=== PATIENT | female | born 1950 | race Caucasian/White ===

== ENCOUNTER → 2018-07-27 14:40 | Outpatient (CLI) | payer MEDICARE, BC, SELFPAY | PROVIDERS: PCP Family Medicine; Visit Provider Nurse Practitioner Family | DX: M81.0 Age-related osteoporosis without current pathological fracture (principal); Z78.0 Asymptomatic menopausal state; Z85.3 Personal history of malignant neoplasm of breast; Z82.62 Family history of osteoporosis | CPT/HCPCS: 77080 ==

== ENCOUNTER → 2019-04-23 16:55 | Outpatient (CLI) | payer MEDICARE, BC, SELFPAY ==
--- NOTE | 2019-04-23 | DI.MRI.S_ITS ---
PROCEDURE: MR KNEE RT WO CON INDICATIONS: Right knee pain TECHNIQUE: Noncontrast sagittal PD fast spin echo and T2 fast spin echo with fat saturation, sagittal 3-D FLASH with fat saturation; coronal T1 spin echo and PD fast spin echo with fat saturation, and axial PD fast spin echo with fat saturation through the knee. COMPARISON: None. FINDINGS: Image quality: Diagnostic. Bones and joint: There is no acute fracture or dislocation. No suspicious osseous lesions are evident. There is a small knee joint effusion with an associated trace Daly's cyst. Heterogeneity and mild irregularity of the hyaline articular cartilage within all 3 compartments of the knee is present. Scattered full-thickness cartilaginous defects and areas of cartilaginous scarring appear to be present. No large defects are evident. Mild focal marrow edema involving the periphery of the medial tibial plateau be degenerative versus bone contusion. Scattered small developing marginal osteophytes are noted throughout the knee. Cruciate ligaments: The anterior and posterior cruciate ligaments are intact. Menisci: There is a complex tear is identified involving the medial meniscus with a predominant oblique tear extending from the periphery to the inferior articular surface through the body of the medial meniscus. There may be a small displaced meniscal flap identified within this region. Additional areas of degenerative/grade 2 signal extending into the anterior horn are present. Fraying along the free edge of the posterior horn of the medial meniscus is present. The lateral meniscus demonstrates low-grade partial-thickness tearing involving the anterior attachment, but is otherwise unremarkable. Medial structures: The medial collateral ligament is thickened. There is mild edema overlying this ligament.. The semimembranosus tendon insertion is intact. The imaged portions of the pes anserinus tendons are unremarkable. No significant fluid is contained within the pes anserinus bursa. Lateral structures: The popliteal tendon is intact. The lateral collateral ligament proper (fibular collateral ligament) and the proximal tibiofibular ligaments are intact. The distal aspect of the biceps femoris tendon and the iliotibial band are intact. Anterior structures: The quadriceps and patellar tendons are intact. Mild prepatellar soft tissue edema is noted. There is no significant edema in the infrapatellar fat pad. IMPRESSION: 1. Complex medial meniscal tear with a probable small displaced meniscal flap arising from the body of the meniscus. 2. 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 3. Small knee joint effusion. 4. Probable sprain of the medial collateral ligament. 5. Low-grade partial-thickness tear involving the anterior attachment of the lateral meniscus. Dictated by: Amish Friedman M.D. on 04/24/2019 at 8:53 Approved by: Amish Friedman M.D. on 04/24/2019 at 9:10
== END ==
PROVIDERS: PCP Nurse Practitioner Family; Visit Provider Orthopaedic Surgery
DX: S83.231A Complex tear of medial meniscus, current injury, right knee, initial encounter (principal); M94.261 Chondromalacia, right knee; M25.461 Effusion, right knee; S83.241A Other tear of medial meniscus, current injury, right knee, initial encounter; M25.561 Pain in right knee
CPT/HCPCS: 73721

== ENCOUNTER → 2019-11-28 10:06 | Outpatient (CLI) | payer MEDICARE, BC, SELFPAY ==
--- NOTE | 2019-11-28 | DI.US.S_ITS ---
PROCEDURE: US THYROID INDICATIONS: RIGHT SUBMANDIBULAR LUMP X 3 WEEKS TECHNIQUE: Real-time scanning was performed of the thyroid gland, with image documentation. COMPARISON: None. FINDINGS: Right: Thyroid lobe measures 1.9 x 1.9 x 4.2 cm, and is generally homogeneous in echotexture. Left: Thyroid lobe measures 1.6 x 1.8 x 4.7 cm, and is generally homogenous in echotexture. Isthmus: 2.2 mm thick. Nodule number: 1 Location: Superior left thyroid lobe Size: 2.0 x 1.1 x 1.4 cm. Composition: Solid (2 points) Echogenicity: Hypoechoic (1 point) Shape: Wider than tall Margins: Smoothly marginated Echogenic foci: Absent Total points: 3 points ACR TI-RADS category: Ti RADS 3, mildly suspicious, followup ultrasound recommended in one, 3 and 5 years. Nodule number: 2 Location: Superior right thyroid lobe Size: 1.6 x 1.0 x 1.2 cm. Composition: Solid (2 points) Echogenicity: Hypoechoic (1 points) Shape: Wider than tall Margins: Smoothly demarcated Echogenic foci: Macrocalcifications (1 point) Total points: 4 point ACR TI-RADS category: Ti RADS 4, moderate suspicion, cytology aspiration is recommended. Nodule number: 3 Location: Mid right thyroid lobe Size: 1.1 x 0.9 x 0.8 cm. Composition: Solid (2 points) Echogenicity: Hypoechoic (1 point) Shape: Wider than tall Margins: Smoothly marginated Echogenic foci: None Total points: 3 points ACR TI-RADS category: Ti RADS category 3, mildly suspicious, followup ultrasound assessment in one, 3 and 5 years, Adjacent soft tissues: The area of current clinical concern is located above the right thyroid lobe laterally, described as a submandibular mass like finding clinically, and this is comprised of 2 adjacent hypoechoic ovoid structures measuring 1.1 x 0.7 x 1.1 cm more superiorly without elevated vascularity and 1.8 x 1.2 x 1.6 cm more inferiorly, immediately adjacent, with mild increased internal vascularity. These appear to represent lymph nodes but without a visible fatty hilum at either of the 2 structures. IMPRESSION: 1. In the area of current palpable abnormality superior and lateral to the thyroid lobe on the right there are 2 adjacent ovoid hypoechoic structures with an appearance suggestive of abnormal lymph nodes, measuring up to 1.8 cm inferiorly and 1.1 cm slightly more superiorly. Neoplastic infiltration can produce this appearance. ENT consultation is recommended, and excisional biopsy may be warranted depending on that consultation. Please note that fine needle aspiration in the setting of lymphoma generally is nondiagnostic. Contrast-enhanced CT scanning of the neck likely is warranted given the findings. 2. The thyroid gland contains 3 separate thyroid nodules. The nodule located at the superior right thyroid lobe has a high rest category of 4, moderately suspicious, and given its size slightly above 1.6 cm in maximal dimension fine needle cytology aspiration is recommended. 3. 2 additional thyroid nodules are present, located at the middle third of the right thyroid lobe and the upper left thyroid lobe. Followup thyroid ultrasound targeted to these structures is recommended in one, 3, and 5 years. ACR TI-RADS definitions and recommendations: TI-RADS 1 (benign): 0 points. FNA not needed. TI-RADS 2 (not suspicious): 2 points. FNA not needed. TI-RADS 3 (mildly suspicious): 3 points. * FNA if 2.5 cm or larger, follow up if 1.5 cm or larger (at 1, 3, and 5 years). TI-RADS 4 (moderately suspicious): 4-6 points. * FNA if 1.5 cm or larger, follow up if 1 cm or larger (at 1, 2, 3, and 5 years). TI-RADS 5 (highly suspicious): 7 points or more. * FNA if 1 cm or larger, follow up if 0.5 cm or larger (every year for 5 years). Dictated by: William Morales M.D. on 11/30/2019 at 5:11 Approved by: William Morales M.D. on 11/30/2019 at 5:41
== END ==
PROVIDERS: PCP Internal Medicine; Referring Provider Internal Medicine; Visit Provider Internal Medicine
DX: E04.2 Nontoxic multinodular goiter (principal); R59.0 Localized enlarged lymph nodes
CPT/HCPCS: 76536

== ENCOUNTER → 2019-12-06 10:59 | Outpatient (CLI) | payer MEDICARE, BC, SELFPAY ==
--- NOTE | 2019-12-06 | DI.CT.S_ITS ---
PROCEDURE: CT SOFT TISSUE NECK W CON INDICATIONS: Generalized enlarged lymph nodes TECHNIQUE: After the administration of intravenous contrast, 3.0 mm axial sections acquired from the sella to the aortic arch. Additional oblique axial 3.0 mm sections acquired through the pharynx. 3 mm thick coronal and sagittal reformats were generated. For radiation dose reduction, the following was used: automated exposure control. COMPARISON: [facility], CT, THORAX WITH CONTRAST, 12/24/2011, 15:53. FINDINGS: Image quality: Excellent. Lymph nodes: There is a cluster of enlarged/borderline enlarged lymph nodes within the right level II and III scattered subcentimeter lymph nodes are noted, the largest measuring 14 mm in the right level IIA. There also multiple subcentimeter lymph nodes within the visualized portions of the right axillary and supraclavicular regions. Vessels: Visualized vasculature appears patent. Neck spaces: The oropharynx, nasopharynx, and pharynx demonstrate no mucosal lesions. The vocal cords, false vocal cords, pyriform sinuses, epiglottis, vallecula, and tongue base all appear normal. Extramucosal spaces appear unremarkable. Glands: The parotid and submandibular glands appear normal. Thyroid gland thyroid gland demonstrates low-attenuation foci as well as calcifications bilaterally. There are not included within the [id number] on prior exams.. Miscellaneous: Visualized brain and orbits appear normal. Lung apices appear clear. Superficial soft tissues appear normal. Incompletely visualized bilateral breast implants are noted. Bones: No suspicious bony lesions. Visualized sinuses and mastoids appear unremarkable. IMPRESSION: 1. Right-sided adenopathy as described above. Given history of previous breast cancer, there is concern for metastatic disease. 2. Thyroid low attenuation and calcifications as above without priors available for comparison. Heart ultrasound is recommended for further evaluation. Dictated by: Corinne Escobar M.D. on 12/06/2019 at 14:36 Approved by: Corinne Escobar M.D. on 12/06/2019 at 14:47
== END ==
PROVIDERS: PCP Internal Medicine; Referring Provider Internal Medicine; Visit Provider Internal Medicine
DX: R59.1 Generalized enlarged lymph nodes (principal); Z85.3 Personal history of malignant neoplasm of breast
CPT/HCPCS: 70491; Q9967

== ENCOUNTER → 2020-01-18 12:23 | Outpatient (CLI) | payer MEDICARE, BC, SELFPAY ==
--- NOTE | 2020-01-18 | PATH_ITS ---
Note [facility] Accession Number: [id number] TESTS RESULT FLAG UNITS REF RANGE LAB Clinician Provided Cytology Information No. of containers..01 Other (Miscellaneous) No. of containers..06 Previously Prepared Cytology Slide 01 RIGHT SUPERIOR THYROID NODULE DIAGNOSIS: 01 RIGHT SUPERIOR THYROID NODULE INCONCLUSIVE. BETHES[place] CATEGORY III. ATYPIA OF UNDETERMINED SIGNIFICANCE. COMMENT: The specimen is moderately cellular with follicular cells present in macro- and microfollicles. Nuclear overlap is seen as well as nuclear grooves and focal slight clearing of the chromatin. Hurthle cell change is seen in some of the groups. This case is also reviewed by Dr. Rachel Platt who concurs with the given intepretation. Pathologist ICD10: 01 R89.6 01 Details: Vickie is a 69-year-old female who is seen in evaluation of right neck swelling. Several months ago she had which seems to be a viral illness and subsequently had bilateral neck swelling. Subsequently this largely resolved and she was left with an area on the right submandibular region that was swollen. She underwent workup including an ultrasound of her thyroid followed by a CT of the neck. The ultrasound of the thyroid demonstrates 3 nodules the 1 of the nodules were in the right upper pole is 1.6 cm wider than tall and solid in its appearance and was classified as Ti Rads 4. The CT of the neck demonstrated a group of enlarged lymph nodes the largest being a 14 mm node in level Il of the right neck. She subsequently was seen by ENT who felt that she should undergo a needle biopsy of the thyroid and neck node. Radiology feels the neck node is too deep to safely obtained with needle and recommended surgical excision and now she has been referred to General surgery. Patient feels that she is better and that the nodes in her neck are smaller and less painful than they were previously. She is in no pain has no dysphagia or voice changes. Vickie is a 69-year-old woman with a suspicious right thyroid nodule and right neck lymphadenopathy. #Right thyroid nodule-I reviewed her thyroid ultrasound which demonstrates 3 nodules 2 in the right 1 on the left. The right superior thyroid nodule is solid and 1.6 cm and Ti-Rads 4, the remaining nodules were Ti-Rads 3. It is reasonable to proceed with a a diagnostic ultrasound- guided biopsy of the right superior thyroid nodule. Once pathology is back on the thyroid this will determine what further treatment if any is necessary. # right neck lymphadenopathy-l suspect that her lymphadenopathy is secondary to her recent upper respiratory infection. She had significant bilateral neck swelling 2 months ago which has subsequently improved substantially. I think the lymphadenopathy is unlikely to be a result of her prior breast cancer as this was in the remote past and she was node negative at the time. Unfortunately the lymph node is deep and unable to be safely accessed by Radiology by needle biopsy. I would recommend that we repeat her CT neck at this time. If the lymphadenopathy of the right neck has decreased then it is unlikely to be malignancy.However if it is continues to be enlarged and concerning on imaging that I would recommend that she undergo excisional biopsy of the lymph node by ENT. She will follow up in the surgical clinic in 6 weeks time to review her pathology. 01 Irma Marquez MD, Pathologist NPI- [id number] 01 [place], [employer] Apprentice ([facility]) 01 30 CC, RED, CLEAR RECIEVED: IN CYTOLYT WITH 8 ALCOHOL FIXED AND 8 QUICK STAINED SLIDES ALSO 1 RNA VIAL WAS RECEIVED FOR FURTHER TESTING. /VDU 01/21/2020 0839 Local FLAG LEGEND: L-Low Normal,H-High Normal,LL-Alert Low,HH-Alert High <-Panic Low,>-Panic High,A-Abnormal,AA-Critical Abnormal Performed at: 01 =Z [facility] [address] [place] [address] [address], [place] [address] Ravi Pollock MD, Specimen Comment: [id number] Performed at: [address] [facility] [address], [place], [place] [id number] MD Ravi Pollock MD Phone: [phone]
--- NOTE | 2020-01-18 12:32 | DI.US.S_ITS ---
PROCEDURE: US FINE NEEDLE ASPIRATION INDICATIONS: Right thyroid nodule. Right neck lymphadenopathy-Rule out recurrent breast cancer TECHNIQUE: The indications, alternatives, benefits, risks, and complications of the procedure were explained to the patient. Written informed consent was obtained and placed in the chart. The thyroid region was examined sonographically and a site was chosen for ultrasound guided percutaneous sampling. The skin was prepared and draped in the usual fashion, and anesthetized with 1% lidocaine infiltrated from the skin down to the thyroid gland. Multiple passes were then performed, with contents emptied into an appropriate pathology specimen container. A bandage was applied to the area of access at completion of the study. COMPARISON: None. FINDINGS: Location(s) of lesion(s) sampled: Superior-lateral right thyroid lobe nodule [place]: 25 gauge hypodermic needles. Number of passes: 8 Medications: Approximately 4 cc of 1% lidocaine for local anaesthesia. Complications: None. IMPRESSION: Successful ultrasound-guided thyroid nodule fine needle aspiration, with cytology results pending. Please see chart below for management recommendations based on cytology results. [facility] ReportingRecommendationsNon-diagnostic* Repeat US-guided FNA, with on-site cytology evaluation if possible. * Repeated non-diagnostic nodules without high suspicion US features: close observation vs surgical consult. * Consider surgery if nodule has high suspicion US features, grows >20% in 2 dimensions on followup, or patient has clinical risk factors for malignancy. Benign* If nodule has high suspicion US features: repeat US and FNA within 12 months. * If nodule has low to intermediate suspicion US features: repeat US at 12-24 months. If nodule grows (20% increase in at least 2 dimensions, with minimal increase of 2 mm or >50% change in volume), or development of new suspicious US features, then repeat FNA or continue followup. * If nodule has very low suspicion US features: followup US at >24 months. Atypia of undetermined significance, follicular lesion of undetermined significanceRepeat FNA, molecular testing, followup US, or surgical consult.Follicular neoplasm, suspicious for follicular neoplasmSurgical consult; also consider molecular testing. Suspicious for malignancySurgical consult.MalignantSurgical consult. Dictated by: Mira Gray MD, PhD on 01/18/2020 at 15:00 Approved by: Mira Gray MD, PhD on 01/18/2020 at 15:01
[2020-01-18 13:05] LABS: Alanine Aminotransferase 138 IU/L (<35); Albumin 4.4 g/dL (3.5-5.0); Alkaline Phosphatase 78 U/L (38-126); Aspartate Aminotransferase 70 IU/L (14-36); BUN Creatinine Ratio 29.3 (6-22); Bilirubin Total 0.6 mg/dL (0.2-1.3); Blood Urea Nitrogen 17 mg/dL (7-17); Carbon Dioxide 29 mmol/L (22-32); Chloride 104 mmol/L (98-107); Estimated Glomerular Filt Rate > 60.0 mL/min (>60); Globulin 3.8 g/dL (1.7-4.1); Glucose 104 mg/dL (80-110); Potassium 4.3 mmol/L (3.4-5.1); Sodium 139 mmol/L (137-145); Total Protein 8.2 g/dL (6.3-8.2)
[2020-01-18 13:06] LABS: Albumin Globulin Ratio 1.2 (1.0-2.8); HEMOLYSIS < 15 (0-50)
--- NOTE | 2020-01-18 14:28 | DI.CT.S_ITS ---
PROCEDURE: CT SOFT TISSUE NECK W CON INDICATIONS: Improving Right neck lymphadenopathy TECHNIQUE: After the administration of intravenous contrast, 3.0 mm axial sections acquired from the sella to the aortic arch. Additional oblique axial 3.0 mm sections acquired through the pharynx. 3 mm thick coronal and sagittal reformats were generated. For radiation dose reduction, the following was used: automated exposure control. COMPARISON: [facility], CT, CT SOFT TISSUE NECK W CON, 12/06/2019, 11:13. FINDINGS: Image quality: Excellent. Lymph nodes: Right level IIA enlarged lymph node is slightly decreased in size compared to 12/06/19 measuring 1.2 cm in short axis on the current study (1.4 cm previously). No new neck lymphadenopathy based on size criteria. Vessels: Visualized vasculature appears patent. Neck spaces: The oropharynx, nasopharynx, and pharynx demonstrate no mucosal lesions. The vocal cords, false vocal cords, pyriform sinuses, epiglottis, vallecula, and tongue base all appear normal. There is a small fluid collection adjacent to the right lobe of the thyroid gland likely represents small post biopsy hematoma. No active extravasation of contrast material to suggest active bleeding. Glands: The parotid and submandibular glands appear normal. Thyroid gland contains a 1.3 cm heterogeneous enhancing nodule with punctate calcifications in the superior right thyroid lobe. There is a 0.6 cm diameter hypoattenuating nodule in the left lobe of thyroid gland.. Miscellaneous: Visualized brain and orbits appear normal. Lung apices appear clear. Superficial soft tissues appear normal. Bilateral breast implants partially visualized. Bones: No suspicious bony lesions. Mild mucosal thickening noted in the maxillary sinuses bilaterally. The mastoids appear unremarkable. IMPRESSION: 1. Right level IIA neck lymphadenopathy slightly decreased in size compared to 12/15/2019. Enlarged lymph node could be reactive or neoplastic including metastatic disease. 2. Small hematoma adjacent to the right lobe of the thyroid gland related to thyroid nodule fine needle aspiration performed earlier in the day. Dictated by: Mira Gray MD, PhD on 01/18/2020 at 14:37 Approved by: Mira Gray MD, PhD on 01/18/2020 at 14:44
== END ==
PROVIDERS: PCP Internal Medicine; Referring Provider Surgery; Visit Provider Surgery
DX: E04.2 Nontoxic multinodular goiter (principal); R59.0 Localized enlarged lymph nodes; E89.820 Postprocedural hematoma of an endocrine system organ or structure following an endocrine system procedure; Z85.3 Personal history of malignant neoplasm of breast; Z98.82 Breast implant status
CPT/HCPCS: 10005; 36415; 70491; 80053; Q9967

== ENCOUNTER → 2021-12-01 12:33 | Outpatient (CLI) | payer MEDICARE, BC, SELFPAY ==
--- NOTE | 2021-12-01 | DI.RAD.S_ITS ---
PROCEDURE: XR CHEST 2V INDICATIONS: Shortness of breath TECHNIQUE: 2 views of the chest were acquired. COMPARISON: [facility], , CHEST 2 VIEW, 12/24/2011, 13:46. FINDINGS: Surgical changes and devices: Surgical clips noted over the thyroid bed. Lungs and pleura: Elevated left hemidiaphragm. Remainder the lungs and pleural spaces clear. Mediastinum: Mediastinal contours are normal. Heart size is normal. Bones and chest wall: No suspicious bony abnormalities. Soft tissues appear unremarkable. IMPRESSION: No acute cardiopulmonary findings Approved by: Gage Lyle M.D. on 12/01/2021 at 15:51
== END ==
PROVIDERS: PCP Internal Medicine; Referring Provider Internal Medicine; Visit Provider Internal Medicine
DX: R06.02 Shortness of breath (principal); Z85.3 Personal history of malignant neoplasm of breast
CPT/HCPCS: 71046

== ENCOUNTER → 2022-02-18 11:28 | Outpatient (CLI) | payer MEDICARE, BC, SELFPAY ==
--- NOTE | 2022-02-18 11:40 | DI.CT.S_ITS ---
PROCEDURE: CT ABDOMEN PELVIS W CON INDICATIONS: CHRON'S DISEASE TECHNIQUE: After the administration of intravenous contrast, axial sections acquired from the lung bases to the pubic symphysis. Coronal and sagittal reformats were performed. For radiation dose reduction, the following was used: automated exposure control, adjustment of mA and/or kV according to patient size. COMPARISON: None. FINDINGS: Image quality: Excellent. Lung bases: Unremarkable. Heart: No significant findings. Miscellaneous: Mammoplasties ABDOMEN: Liver: Unremarkable. Gallbladder: Unremarkable. Biliary ducts: Unremarkable. Pancreas: Unremarkable. Spleen: Unremarkable. Adrenal Glands: Unremarkable. Kidneys and Ureters: Tiny nonobstructing left renal stone. No hydronephrosis. Stomach and Bowel: There are loops of ileum which definitely have an abnormal appearance however, they appear mildly dilated with fatty wall replacement consistent with sequelae of inflammation. These are skip lesions, consistent with skip lesions in Crohn's disease. No colonic involvement is identified. There is moderate diverticulosis in the sigmoid without evidence of diverticulitis. There is chronic inflammatory change in the mesenteric fat. Peritoneum: No abnormal intraperitoneal fluid. No free air. Chronic inflammatory change in the mesenteric fat. Ventral Wall: No hernias. Abdominal Nodes: No retroperitoneal or mesenteric adenopathy by size criteria. Vessels: Aorta and inferior vena cava are normal in size. PELVIS: Pelvic Organs: Unremarkable. Bladder: Unremarkable. Pelvic Nodes: No enlarged lymph nodes. Miscellaneous: No hernias are seen. Bones: Lumbar degenerative change. No lytic or blastic bony lesions. No compression fractures. IMPRESSION: 1. Sequelae of chronic inflammation involving skip areas in the ileum with impressive fatty replacement of the normal muscular wall of the ileum and associated inflammatory change in the mesenteric fat. 2. No evidence of acute inflammation involving the small bowel or colon. 3. Diverticulosis without evidence of diverticulitis. 4. No evidence of acute abdominal process. Dictated by: Eloy Rivera M.D. on 02/18/2022 at 15:16 Approved by: Eloy Rivera M.D. on 02/18/2022 at 15:24
[2022-02-18 12:39] LABS: BUN Creatinine Ratio 21.7 (6-22); Blood Urea Nitrogen 13 mg/dL (7-17); Calcium 9.2 mg/dL (8.4-10.2); Carbon Dioxide 29 mmol/L (22-32); Chloride 105 mmol/L (98-107); Estimated Glomerular Filt Rate > 60 mL/min (>60); Glucose 99 mg/dL (80-110); HEMOLYSIS < 15 (0-50); Potassium 4.3 mmol/L (3.4-5.1); Sodium 138 mmol/L (137-145)
== END ==
PROVIDERS: PCP Internal Medicine; Referring Provider Internal Medicine; Visit Provider Internal Medicine
DX: Z01.812 Encounter for preprocedural laboratory examination (principal); K50.90 Crohn's disease, unspecified, without complications; K57.30 Diverticulosis of large intestine without perforation or abscess without bleeding
CPT/HCPCS: 36415; 74177; 80048; Q9967

== ENCOUNTER → 2022-03-09 11:32 | Outpatient (CLI) | payer MEDICARE, BC, SELFPAY | PROVIDERS: PCP Internal Medicine; Referring Provider Internal Medicine; Visit Provider Internal Medicine | DX: Z78.0 Asymptomatic menopausal state (principal); M85.89 Other specified disorders of bone density and structure, multiple sites; Z87.311 Personal history of (healed) other pathological fracture | CPT/HCPCS: 77080 ==

== ENCOUNTER → 2023-05-23 16:02 | Outpatient (CLI) | payer MEDICARE, BC, SELFPAY ==
--- NOTE | 2023-05-23 | DI.RAD.S_ITS ---
PROCEDURE: XR CHEST 2V INDICATIONS: SHORT OF BREATH TECHNIQUE: 2 views of the chest were acquired. COMPARISON: [facility], CR, XR CHEST 2V, 12/01/2021, 12:31. FINDINGS: Surgical changes and devices: Thyroidectomy surgical clips Lungs and pleura: Elevated left hemidiaphragm associated with atelectasis. Right lung and both pleural spaces clear Mediastinum: Mediastinal contours are normal. Heart size is normal. Bones and chest wall: No suspicious bony abnormalities. Soft tissues appear unremarkable. IMPRESSION: Elevated left hemidiaphragm and associated atelectasis, similar to the prior Approved by: Gage Lyle M.D. on 05/23/2023 at 19:00
== END ==
PROVIDERS: PCP Internal Medicine; Referring Provider Internal Medicine; Visit Provider Internal Medicine
DX: R06.02 Shortness of breath (principal); R03.0 Elevated blood-pressure reading, without diagnosis of hypertension
CPT/HCPCS: 71046

== ENCOUNTER → 2023-06-03 13:26 | Outpatient (CLI) | payer MEDICARE, BC, SELFPAY | PROVIDERS: PCP Internal Medicine; Referring Provider Internal Medicine; Visit Provider Internal Medicine | DX: R03.0 Elevated blood-pressure reading, without diagnosis of hypertension (principal); R06.02 Shortness of breath; J98.8 Other specified respiratory disorders | CPT/HCPCS: 94060; 94726 ==

== ENCOUNTER → 2023-06-07 09:16 | Outpatient (CLI) | payer MEDICARE, BC, SELFPAY ==
--- NOTE | 2023-06-07 | DI.ECHO.S_ITS ---
[facility] +---------+ : : [address] : [address] : : : : [id number] : : : : Phone: [phone]+ Echocardiogram Report + + :Name: LEANNA KAUR Study Date: 06/07/2023 Height: 65 in : :[facility] ReadingLocation: Weight: 230 lb : : Gender: Female BSA: 2.1 m2 : :: 1950 Age: 73 yrs BP: 152/92 mmHg: :Reason For Study: SHORTNESS OF BREATH : :Ordering Physician: CHEY, : :CANDICE Performed By: Melissa Shea : :Referring: CANDICE GUERRIER : + + Interpretation Summary This is a somewhat technically difficult study enhanced with Definity echocontrast. Normal LV size and wall thickness; normal wall motion and LV systolic function. EF is 55-60%. Normal chamber sizes. No valve abnormalities. No prior study available for comparison. Procedure: A two-dimensional transthoracic echocardiogram with color flow and Doppler was performed. The study quality was technically difficult. There is no prior echocardiogram noted for this patient. A contrast injection of Definity was performed to improve assessment of LV function. The patient was in sinus rhythm with heart rates between 56-65 bpm during the exam. Left Ventricle: The left ventricle is normal in size and wall thickness. The ejection fraction is estimated to be 55-60%. Right Ventricle: The right ventricle is normal in size and function. Atria: The left atrial size is normal. Right atrial size is normal. There is no Doppler evidence for an interatrial shunt. Mitral Valve: The mitral valve is normal in structure and function. There is no mitral regurgitation noted. Aortic Valve: The aortic valve is not well visualized. There is no aortic valve stenosis. No aortic regurgitation is present. Tricuspid Valve: The tricuspid valve is normal in structure and function. There is trace tricuspid regurgitation. Pulmonic Valve: The pulmonic valve leaflets are thin and pliable; valve motion is normal. There is no pulmonic valvular regurgitation. Great Vessels: The aortic root is normal size. The dimensions of the ascending aorta are normal. The IVC is of normal diameter and collapses greater than 50% with a sniff. This suggests a low right atrial pressure of 3 mm Hg. Pericardium/ Pleura There is no pericardial effusion. There is no pleural effusion. MMode/2D Measurements & Calculations LVIDd: 4.0 cm LVOT diam: 2.2 cm LVIDs: 2.6 cm Ao root diam: 3.6 cm FS: 36.6 % asc Aorta Diam: 3.0 cm EPSS: 0.95 cm Ao Arch Diam (Prox Trans): 3.3 cm IVSd: 0.88 cm LVPWd: 1.1 cm LV escobar. diameter/BSA (cm/m^2): 1.9 LV sys. diameter/BSA (cm/m^2): 1.2 LA A2 area: 17.4 cm2 RA long axis: 4.6 cm LA A4 area: 19.1 cm2 RA area: 13.3 cm2 LA length (vol): 5.5 cm RA vol: 32.4 ml LA vol: 50.9 ml RA : 15.4 ml/m2 LA vol index: 24.3 ml/m2 IVC diam: 1.9 cm RVD1 (basal): 3.7 cm RVD2 (mid): 3.3 cm TAPSE: 2.1 cm Doppler Measurements & Calculations Ao V2 max: 163.5 cm/sec LVOT Max Abel: 103.1 cm/sec Ao V2 mean: 112.9 cm/sec LV V1 max P.3 mmHg Ao max P.7 mmHg LV V1 VTI: 23.3 cm Ao mean P.8 mmHg QASIM(I,D): 2.6 cm2 Ao V2 VTI: 33.9 cm QASIM(V,D): 2.4 cm2 sev ratio: 0.69 QASIM indexed to BSA (cm^2/m^2): 1.2 MV E max abel: 61.8 cm/sec PA V2 max: 80.3 cm/sec MV A max abel: 58.1 cm/sec PA V2 mean: 54.6 cm/sec MV E/A: 1.1 PA mean P.3 mmHg Med Peak E' Abel: 7.4 cm/sec PA pr(Accel): 29.3 mmHg E/E' med: 8.3 Lat Peak E' Abel: 6.3 cm/sec E/E' lat: 9.8 E/e' average: 9.0 MV dec time: 0.28 sec SV(LVOT): 87.5 ml Electronically signed by: Hanny Shannon M.D. on Reading Physician:06/09/2023 03:12 AM
== END ==
PROVIDERS: PCP Internal Medicine; Referring Provider Internal Medicine; Visit Provider Internal Medicine
DX: R06.02 Shortness of breath (principal); R03.0 Elevated blood-pressure reading, without diagnosis of hypertension
CPT/HCPCS: C8929; Q9957

== ENCOUNTER → 2025-01-04 11:59 | Outpatient (CLI) | payer MEDICARE, BC, SELFPAY ==
--- NOTE | 2025-01-04 12:02 | DI.RAD.S_ITS ---
PROCEDURE: XR DEXA AXIAL SKELETON INDICATIONS: screening for osteoporosis COMPARISON: [facility], , XR DEXA AXIAL SKELETON, 03/09/2022, 11:49. [facility], [place], XR DEXA AXIAL SKELETON, 07/27/2018, 15:40. FINDINGS: Lumbar Spine: Bone mineral density 0.885 g/cm2, T score -1.4, no significant change. Left Femoral Neck: Bone mineral density 0.555 g/cm2, T score -2.6. Left Hip: Bone mineral density 0.809 g/cm2, T score -1.9, no significant change. Fracture Risk Calculation (when applicable): 10-year fracture risk of a major osteoporotic fracture 22 percent and of a hip fracture 6.2 percent. (T score greater or equal to -1.0 to: NORMAL) (T score from -1.1 to -2.4: OSTEOPENIA) (T score less than or equal to -2.5: OSTEOPOROSIS) IMPRESSION: Osteoporosis by WHO classification. Follow-up guidelines as follows: Osteoporosis: Consider a repeat DEXA and Vertebral Fracture Assessment (VFA) exam in 2 years or sooner if medically necessary, to reassess this patient's status. Osteopenia: Consider a repeat DEXA in 2-3 years to reassess this patient's status, or if there is a new clinical indication. Normal: Consider a repeat DEXA in 5 years or sooner, or if there is a new clinical indication. All treatment decisions require clinical judgment and consideration of individual patient factors, including patient preferences, comorbidities, previous drug use, risk factors not captured in the FRAX model (e.g., frailty, falls, vitamin D deficiency, increased bone turnover, interval significant decline in bone density ) and possible under- or over-estimation of fracture risk by FRAX. In addition, the NOF Guide recommends that FDA-approved medical therapies be considered in postmenopausal women and men age >= 50 years with a: * Hip or vertebral (clinical or morphometric) fracture * T-score of <=-2.5 at the spine or hip * Ten-year fracture probability by FRAX of >= 3% for hip fracture or >=20% for major osteoporotic fracture. Dictated by: Deshaun Fields M.D. on 01/06/2025 at 21:43 Approved by: Deshaun Fields M.D. on 01/06/2025 at 21:44
== END ==
LOC: RAD 12:00
PROVIDERS: PCP Registered Nurse; Referring Provider Internal Medicine; Visit Provider Internal Medicine
DX: Z78.0 Asymptomatic menopausal state (principal); M81.0 Age-related osteoporosis without current pathological fracture
CPT/HCPCS: 77080

== ENCOUNTER → 2025-01-28 14:43 | Outpatient (CLI) | payer MEDICARE, BC, SELFPAY ==
--- NOTE | 2025-01-28 17:54 | DI.NM.S_ITS ---
DATE OF SERVICE: 01/28/2025 EXERCISE TREADMILL STRESS TEST PROCEDURE: Exercise treadmill stress test without imaging. ORDERING PROVIDER: GUSTABO Diaz INDICATIONS: The patient is a 74-year-old female with exertional dyspnea. FINDINGS: 1. The patient was able to exercise for 3 minutes 43 seconds on a standard Marciano protocol, suggesting moderate to severely reduced exercise capacity with an BLANCA of +30%, achieving 4.6 METs. 2. She had a normal heart rate and blood pressure response to exercise, achieving a maximum heart rate of 146 bpm (100% of her predicted maximum). Her resting blood pressure was moderately elevated at 160/90, increasing to a maximum of 180/96 with exercise. 3. She had moderate exertional dyspnea but no chest discomfort or other anginal symptoms. 4. Her resting ECG show sinus rhythm with normal ST segments. With stress, there are no significant ST-segment shifts. She had occasional PVCs that improved with exercise and no complex ventricular ectopy. IMPRESSION: 1. Normal exercise treadmill stress test for ischemia. 2. Moderate-severely reduced exercise capacity without angina but significant dyspnea. 3. She had isolated PVCs with stress but no complex ventricular ectopy. Vickie Smith - RS/fn/LA doc#: [id number]/job#: [id number] dd: 01/28/2025 17:32:00 dt: 01/28/2025 17:41:00 DICTATING /COPIES TO: Anand Whitt MD; Samanta Reece NP COPIES MNE: CHEMA;
== END ==
PROVIDERS: PCP Registered Nurse; Referring Provider Registered Nurse; Visit Provider Registered Nurse
DX: R06.02 Shortness of breath (principal)
CPT/HCPCS: 93017

== ENCOUNTER → 2025-04-15 15:26 | Outpatient (CLI) | payer MEDICARE, BC, SELFPAY ==
--- NOTE | 2025-04-15 15:35 | DI.RAD.S_ITS ---
PROCEDURE: XR KNEE LT 4V INDICATIONS: BI KNEE PAIN TECHNIQUE: 4 views of the knee were acquired. COMPARISON: None. FINDINGS: Bones: No fractures or dislocations. Moderate to severe medial and moderate lateral tibiofemoral and moderate to severe patellofemoral compartment narrowing with associated osteophytosis. Varus angulation. No suspicious bony lesions. Soft tissues: Small joint effusion. No suspicious soft tissue calcifications. IMPRESSION: KL grade 3 tricompartmental osteoarthritis without evidence of acute bony abnormality. Varus angulation and small joint effusion. Dictated by: Willam Mar M.D. on 04/16/2025 at 22:05 Approved by: Willam Mar M.D. on 04/16/2025 at 22:06
--- NOTE | 2025-04-15 15:35 | DI.RAD.S_ITS ---
PROCEDURE: XR KNEE RT 4V INDICATIONS: BI KNEE PAIN TECHNIQUE: 4 views of the knee were acquired. COMPARISON: None. FINDINGS: Bones: No fractures or dislocations. Moderate medial and lateral tibiofemoral and moderate to severe patellofemoral compartment narrowing with associated osteophytosis. No suspicious bony lesions. Soft tissues: No joint effusion. No suspicious soft tissue calcifications. IMPRESSION: KL grade 2 tricompartmental osteoarthritis without evidence of acute bony abnormality or significant effusion. Dictated by: Willam Mar M.D. on 04/16/2025 at 22:06 Approved by: Willam Mar M.D. on 04/16/2025 at 22:35
== END ==
PROVIDERS: PCP Registered Nurse; Referring Provider Registered Nurse; Visit Provider Registered Nurse
DX: M17.0 Bilateral primary osteoarthritis of knee (principal); M25.561 Pain in right knee; M25.562 Pain in left knee; M21.162 Varus deformity, not elsewhere classified, left knee; M25.462 Effusion, left knee
CPT/HCPCS: 73564

== ENCOUNTER → 2025-05-01 11:04 | Outpatient (CLI) | payer MEDICARE, BC, SELFPAY | PROVIDERS: PCP Registered Nurse; Referring Provider Registered Nurse; Visit Provider Registered Nurse | DX: R06.09 Other forms of dyspnea (principal); R94.2 Abnormal results of pulmonary function studies | CPT/HCPCS: 94060; 94726; 94729 ==

== ENCOUNTER → 2025-09-04 08:37 | Outpatient (CLI) | payer MEDICARE, BC, SELFPAY ==
--- NOTE | 2025-09-04 08:40 | DI.CT.S_ITS ---
PROCEDURE: CT CHEST HIGH RESOLUTION INDICATIONS: rule out left hemidiaphragm paralysis TECHNIQUE: Noncontrast 1.0 and 5.0 mm thick contiguous axial sections from the pulmonary apex to the posterior costophrenic angles, with 7 mm thick coronal and sagittal MIP reformats. 1 mm thick dynamic expiratory images acquired through the upper, mid, and lower lungs. 1.0 mm thick axial sections acquired from the reinaldo to the posterior costophrenic angles in the prone end-inspiration position. For radiation dose reduction, the following was used: automated exposure control, adjustment of mA and/or kV according to patient size. COMPARISON: [facility], , [place] FLUOROSCOPY >1HR, 09/04/2025, 9:08. FINDINGS: Image quality: Diagnostic Lungs and pleura: There is relative elevation of the left hemidiaphragm. Scattered scarring and atelectasis. [id number] diffuse air trapping is seen on expiratory images. No peripheral reticulation/fibrosis. Mild ground-glass opacities are present in the central right upper lobe. Mediastinum, heart, and esophagus: Cardiomegaly. No enlarged lymph nodes by size criteria. Unremarkable CT appearance of the esophagus Ectatic ascending aorta at 4.1 cm. Chest wall and thyroid: Thyroid bed postsurgical changes. Bilateral breast implants. Upper abdomen: Small fat containing right Bochdalek's hernia. Upper abdomen otherwise unremarkable on these limited non-contrast images Bones: There are degenerative findings. No aggressive appearing osseous abnormality IMPRESSION: Relative elevation of the left hemidiaphragm. Fluoroscopic sniff test separately reported. No pulmonary fibrosis. Diffuse air trapping is seen on expiratory images, which can be seen with chronic bronchiolitis. Ectatic ascending aorta at 4.1 cm. Cardiomegaly. Other findings above. Dictated by: Willi Foster M.D. on 09/04/2025 at 9:37 Approved by: Willi Foster M.D. on 09/04/2025 at 9:43
== END ==
LOC: CT 08:38
PROVIDERS: PCP Registered Nurse; Referring Provider Registered Nurse; Visit Provider Internal Medicine
DX: I77.810 Thoracic aortic ectasia (principal); I51.7 Cardiomegaly; R06.02 Shortness of breath
CPT/HCPCS: 71250; 76000